=== PATIENT | male | born 1975 | race Caucasian/White ===

== ENCOUNTER 2017-04-24 09:03 | Emergency (ER) | payer SELFPAY ==
[2017-04-24 09:27] VITALS: BP 187/97; PULSE 113; RESP 20; TEMP 38.8; O2SAT 96; BMI 41.3
--- NOTE | 2017-04-24 09:52 | HMH.EDUTC ---
[facility] [place] Impression: Influenza-like illness Disposition: Home, Self-Care Condition on Discharge: Good Instructions: DI for Influenza -- Adult Additional Instructions: * Lots of rest * Increase fluids, water, gatorade, powerade, pedialyte if infant/toddler/child * Monitor Temp. Tylenol every 4 hours as needed no more then 5 times a day or 4000mg in 24 hours and/or ibuprofen every 6 hours as needed no more then 3200mg in 24 hours (as long as your primary care doctor has told you that it is ok to take both) for fever/aches/pain. ER if fever no less than 101 despite tylenol and Ibuprofen * OTC cold/flu/sinus medication is ok but pick one. Your best option with high blood pressure would be Coricidin HBP. Do not take multiple different ones as they have similar ingredients and you can overdose on cold medication. * You (or your child) are contagious until no fever, aches, chills x 24 hours without medication for symptoms. Referrals: Ruma Abbott MD [Primary Care Provider] - (Immediately for new or worsening symptoms, improvement followed by sudden worsening or no noticeable improvement starting over the next 4 days. 911/ER for difficulty breathing/shortness of breath) Forms: Work/School Release Time of Disposition: 10:00 Medical Decision Making Vital Signs: 04/24/17 09:27 Temperature 102 F H Temperature Source Temporal Artery Scan Pulse Rate [Right Brachial] 113 H Respiratory Rate 20 Blood Pressure [Right Arm] 187/97 Blood Pressure Mean [Right Arm] 127 Blood Pressure Source [Right Arm] Automatic Cuff Blood Pressure Position [Right Arm] Sitting 02 Sat by Pulse Oximetry 96 Oxygen Delivery Method Room Air - Lab Data Lab results reviewed: Yes: I reviewed the patient's lab results. Flu A neg Flu B neg - Joey Inquiry Pt receiving controlled substance: No [facility] [place] - General Stated complaint: flu like symptoms Time Seen by Provider: 04/24/17 09:52 Mode of Arrival: Ambulatory Source of Information: Patient Limitations: No Limitations Description of Symptoms (Recalled from Triage Doc. by RN): possible flu HEENT Symptoms (Recalled from RN notes): No Resp Symptoms (Recalled from RN notes): Yes (possibe flu) Skin Symptoms (Recalled from RN notes): No MS Symptoms (Recalled from RN notes): No Functional Status (Recalled from RN notes): n/a - History of Present Illness Provider Complaint: c/o I think I have the flu . Fatigue last night. Feels worse this morning. Fever 101 at home, aches, chills, headache, minimal nonprod cough. No known sick contacts. No treatment before arrival. 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 Allergies Allergy/AdvReac Type Severity Reaction Status Date / Time No Known Allergies Allergy Verified 04/24/17 09:30 - Worker's Comp Is this a Worker's Comp case?: No [facility] History I have reviewed the patient's past medical history: Yes Medical History: Reports:: Hypertension Denies:: Cancer, Diabetes Mellitus Type 1, Diabetes Mellitus Type 2, MRSA Other Surgeries: Yes: No Previous Surgery Amputation: No Fractures: No - *Social History Smoking Status: Never smoker Alcohol Intake: never - Psychiatric History Expresses thoughts of harming self/others: None Suicide Plan Description: No Plan ROS Obtained: Yes Systems reviewed as appropriate & no additional complaints - Constitutional Constitutional: Reports as per HPI, Reports fatigue, Denies poor appetite - Eyes Eyes: Denies eye discharge, Denies eye pain, Denies other (eye redness) - ENT Ears, Nose, Mouth, and Throat: Denies otalgia, Reports nasal congestion, Denies nasal discharge, Denies sore throat, Denies throat swelling - Cardiovascular Cardiovascular: Denies chest pain, Denies irregular heart rhythm - Respiratory Respiratory: No chest congestion, Yes non-productive cough, No dyspnea, No wheezing - Gastrointestinal Gastrointestingal: Denies: diarrhea, vomiting - Integumentary/Breasts Sk
--- NOTE | 2017-04-24 09:58 | ED_ITS ---
[facility] [place] Clinical Impression: Influenza-like illness Disposition: Home, Self-Care Condition on Discharge: Good Instructions: DI for Influenza -- Adult Additional Instructions: * Lots of rest * Increase fluids, water, gatorade, powerade, pedialyte if infant/toddler/child * Monitor Temp. Tylenol every 4 hours as needed no more then 5 times a day or 4000mg in 24 hours and/or ibuprofen every 6 hours as needed no more then 3200mg in 24 hours (as long as your primary care doctor has told you that it is ok to take both) for fever/aches/pain. ER if fever no less than 101 despite tylenol and Ibuprofen * OTC cold/flu/sinus medication is ok but pick one. Your best option with high blood pressure would be Coricidin HBP. Do not take multiple different ones as they have similar ingredients and you can overdose on cold medication. * You (or your child) are contagious until no fever, aches, chills x 24 hours without medication for symptoms. Referrals: Ruma Abbott MD [Primary Care Provider] - (Immediately for new or worsening symptoms, improvement followed by sudden worsening or no noticeable improvement starting over the next 4 days. 911/ER for difficulty breathing/ shortness of breath) Forms: Work/School Release Time of Disposition: 10:00 Medical Decision Making Vital Signs: 04/24/17 09:27 Temperature 102 F H Temperature Source Temporal Artery Scan Pulse Rate [Right Brachial] 113 H Respiratory Rate 20 Blood Pressure [Right Arm] 187/97 Blood Pressure Mean [Right Arm] 127 Blood Pressure Source [Right Arm] Automatic Cuff Blood Pressure Position [Right Arm] Sitting 02 Sat by Pulse Oximetry 96 Oxygen Delivery Method Room Air - Lab Data Lab results reviewed: Yes: I reviewed the patient's lab results. Flu A neg Flu B neg - Joey Inquiry Pt receiving controlled substance: No [facility] [place] HPI - General Stated complaint: flu like symptoms Time Seen by Provider: 04/24/17 09:52 Mode of Arrival: Ambulatory Source of Information: Patient Limitations: No Limitations Description of Symptoms (Recalled from Triage Doc. by RN): possible flu HEENT Symptoms (Recalled from RN notes): No Resp Symptoms (Recalled from RN notes): Yes (possibe flu) Skin Symptoms (Recalled from RN notes): No MS Symptoms (Recalled from RN notes): No Functional Status (Recalled from RN notes): n/a - History of Present Illness Provider Complaint: c/o I think I have the flu . Fatigue last night. Feels worse this morning. Fever 101 at home, aches, chills, headache, minimal nonprod cough. No known sick contacts. No treatment before arrival. 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 Allergies Allergy/AdvReac Type Severity Reaction Status Date / Time No Known Allergies Allergy Verified 04/24/17 09:30 - Worker's Comp Is this a Worker's Comp case?: No [facility] History I have reviewed the patient's past medical history: Yes Medical History: Reports:: Hypertension Denies:: Cancer, Diabetes Mellitus Type 1, Diabetes Mellitus Type 2, MRSA Other Surgeries: Yes: No Previous Surgery Amputation: No Fractures: No - *Social History Smoking Status: Never smoker Alcohol Intake: never - Psychiatric History Expresses thoughts of harming self/others: None Suicide Plan Description: No Plan ROS Obtained: Yes Systems reviewed as appropriate & no additional complaints - Constitutional Constitutional: Reports as per HPI, Reports fatig
[2017-04-24 10:01] VITALS: BP 187/97; PULSE 113; RESP 20; TEMP 38.8; O2SAT 96
[2017-04-24 10:08] LABS: UTC Influenza A Antigen Negative (Negative); UTC Influenza B Antigen Negative (Negative)
== END 2017-04-24 10:02 | disposition home or self-care (01) ==
PROVIDERS: Emergency Provider Nurse Practitioner Family; Family Provider Family Medicine; PCP Family Medicine
DX: J11.1 Influenza due to unidentified influenza virus with other respiratory manifestations (principal); I10 Essential (primary) hypertension
CPT/HCPCS: 87804; 99202

== ENCOUNTER → 2017-06-30 16:07 | Outpatient (REF) | payer OTHER, SELFPAY ==
[2017-06-30 18:31] LABS: Basophils % 0.2 % (0.1-2.0); Eosinophils # 0.1 K/mm3 (0.0-0.4); Eosinophils % 1.5 % (0.1-12.0); Hematocrit 43.2 % (42.0-52.0); Hemoglobin 14.5 g/dL (14.1-18.0); Lymphocytes # 2.2 K/mm3 (0.7-4.5); Lymphocytes % 24.5 K/mm3 (10-50); Mean Corpuscular HGB Conc 33.7 g/dL (31.8-35.4); Mean Corpuscular Hemoglobin 27.5 pg (27.0-31.2); Mean Corpuscular Volume 81.6 fl (80-94); Mean Platelet Volume 7.1 fl (7.4-10.4); Monocytes # 0.8 K/mm3 (0.1-1.0); Monocytes % 9.1 % (1.7-9.3); Neutrophils # 5.8 K/mm3 (1.8-7.8); Neutrophils % 64.7 % (37.0-80.0); Platelet Count 321 K/mm3 (142-424); Red Blood Count 5.29 M/mm3 (4.60-6.20); Red Cell Distribution Width 13.9 % (11.5-17.5); White Blood Count 8.9 K/mm3 (4.8-10.8)
[2017-06-30 19:04] LABS: Alanine Aminotransferase 35 U/L (12-78); Albumin Level 4.1 gm/dL (3.4-5.0); Albumin/Globulin Ratio 1.3 (1.1-1.8); Alkaline Phosphatase 88 U/L (46-116); Anion Gap 13.7 mEq/L (5-15); Aspartate Amino Transferase 20 U/L (15-37); Bilirubin,Total 0.6 mg/dL (0.2-1.0); Blood Urea Nitrogen 27 mg/dL (7-18); Calcium 9.9 mg/dL (8.5-10.1); Carbon Dioxide 28 mmol/L (21.0-32.0); Chloride 103 mmol/L (98-107); Chol/HDL Ratio 4.7 (1-3.5); Cholesterol 180 mg/dL (140-200); Creatinine,Serum 0.91 mg/dL (0.70-1.30); Estimated Glomerular Filt Rate 92 ml/min (>60); GFR (African American) 111 ML/MIN (>60); Globulin 3.2 gm/dl (1.3-3.2); Glucose 95 mg/dL (74-106); HDL Cholesterol 38 mg/dL (27-67); LDL Cholesterol 110 mg/dL (0-130); Potassium 4.7 mmoL/L (3.5-5.1); Sodium 140 mmol/L (136-145); T4 (Thyroxine) 8.9 ug/dl (4.7-13.3); Thyroid Stimulating Hormone 4.61 uIU/ml (0.358-3.740); Total Protein,Serum 7.3 gm/dL (6.4-8.2); Triglycerides 159 mg/dL (30-200); VLDL Cholesterol 32 mg/dL (0-40)
[2017-07-03 12:51] LABS: Vitamin D 25 Hydroxy 13.8 ng/mL (30.0-100.0)
== END ==
LOC: LAB 16:07
PROVIDERS: Visit Provider Physician Assistant
DX: I10 Essential (primary) hypertension (principal)
CPT/HCPCS: 80053; 80061; 82652; 84436; 84443; 85025

== ENCOUNTER → 2017-10-29 08:36 | Outpatient (CLI) | payer OTHER, SELFPAY ==
[2017-10-30 11:48] LABS: Basophils % 0.3 % (0.1-2.0); Eosinophils # 0.1 K/mm3 (0.0-0.4); Eosinophils % 1.6 % (0.1-12.0); Hematocrit 46.6 % (42.0-52.0); Hemoglobin 15.3 g/dL (14.1-18.0); Lymphocytes # 1.8 K/mm3 (0.7-4.5); Lymphocytes % 26.1 K/mm3 (10-50); Mean Corpuscular HGB Conc 32.9 g/dL (31.8-35.4); Mean Corpuscular Hemoglobin 27.6 pg (27.0-31.2); Mean Corpuscular Volume 83.9 fl (80-94); Mean Platelet Volume 8.9 fl (7.4-10.4); Monocytes # 0.5 K/mm3 (0.1-1.0); Monocytes % 7.2 % (1.7-9.3); Neutrophils # 4.5 K/mm3 (1.8-7.8); Neutrophils % 64.8 % (37.0-80.0); Platelet Count 265 K/mm3 (142-424); Red Blood Count 5.55 M/mm3 (4.60-6.20); Red Cell Distribution Width 14.1 % (11.5-17.5); White Blood Count 6.9 K/mm3 (4.8-10.8)
[2017-10-30 12:07] LABS: Alanine Aminotransferase 31 U/L (12-78); Albumin/Globulin Ratio 1.4 (1.1-1.8); Alkaline Phosphatase 79 U/L (46-116); Anion Gap 13.3 mEq/L (5-15); Aspartate Amino Transferase 15 U/L (15-37); Bilirubin,Total 0.6 mg/dL (0.2-1.0); Blood Urea Nitrogen 17 mg/dL (7-18); Carbon Dioxide 28 mmol/L (21.0-32.0); Chloride 102 mmol/L (98-107); Chol/HDL Ratio 4.4 (1-3.5); Cholesterol 175 mg/dL (140-200); Estimated Glomerular Filt Rate 74 ml/min (>60); GFR (African American) 89 ML/MIN (>60); Globulin 2.9 gm/dl (1.3-3.2); Glucose 132 mg/dL (74-106); HDL Cholesterol 40 mg/dL (27-67); LDL Cholesterol 105 mg/dL (0-130); Potassium 4.3 mmoL/L (3.5-5.1); Sodium 139 mmol/L (136-145); Thyroid Stimulating Hormone 2.12 uIU/ml (0.358-3.740); Total Protein,Serum 6.9 gm/dL (6.4-8.2); Triglycerides 152 mg/dL (30-200); VLDL Cholesterol 30 mg/dL (0-40)
[2017-11-02 12:54] LABS: Vitamin D 25 Hydroxy 37.5 ng/mL (30.0-100.0)
== END ==
PROVIDERS: Visit Provider Physician Assistant
DX: E03.9 Hypothyroidism, unspecified (principal); I10 Essential (primary) hypertension; Z68.36 Body mass index [BMI] 36.0-36.9, adult
CPT/HCPCS: 80053; 80061; 82652; 84436; 84443; 85025

== ENCOUNTER → 2018-06-22 07:55 | Outpatient (CLI) | payer OTHER, SELFPAY ==
[2018-06-22 09:36] LABS: Alanine Aminotransferase 46 U/L (12-78); Albumin Level 4.2 gm/dL (3.4-5.0); Albumin/Globulin Ratio 1.3 (1.1-1.8); Alkaline Phosphatase 68 U/L (46-116); Anion Gap 10.8 mEq/L (5-15); Aspartate Amino Transferase 23 U/L (15-37); Bilirubin,Total 0.8 mg/dL (0.2-1.0); Blood Urea Nitrogen 22 mg/dL (7-18); Calcium 9.6 mg/dL (8.5-10.1); Carbon Dioxide 31 mmol/L (21.0-32.0); Chloride 102 mmol/L (98-107); Cholesterol 196 mg/dL (140-200); Creatinine,Serum 0.98 mg/dL (0.70-1.30); Estimated Glomerular Filt Rate 84 ml/min (>60); GFR (African American) 101 ML/MIN (>60); Globulin 3.2 gm/dl (1.3-3.2); Glucose 95 mg/dL (74-106); HDL Cholesterol 39 mg/dL (27-67); LDL Cholesterol 143 mg/dL (0-130); Potassium 4.8 mmoL/L (3.5-5.1); Sodium 139 mmol/L (136-145); Thyroid Stimulating Hormone 2.22 uIU/ml (0.358-3.740); Total Protein,Serum 7.4 gm/dL (6.4-8.2); Triglycerides 72 mg/dL (30-200); VLDL Cholesterol 14 mg/dL (0-40)
[2018-06-23 12:47] LABS: Vitamin D 25 Hydroxy 32.5 ng/mL (30.0-100.0)
== END ==
PROVIDERS: Visit Provider Nurse Practitioner Family
DX: Z00.00 Encounter for general adult medical examination without abnormal findings (principal); I10 Essential (primary) hypertension; E03.9 Hypothyroidism, unspecified; E55.9 Vitamin D deficiency, unspecified
CPT/HCPCS: 36415; 80053; 80061; 82652; 84443

== ENCOUNTER 2019-12-12 15:07 | Emergency (ER) | payer OTHER, SELFPAY ==
[2019-12-12 15:20] VITALS: BP 139/55; PULSE 67; RESP 16; TEMP 36.7; O2SAT 98; BMI 39.9
[2019-12-12 15:42] VITALS: BP 139/55; PULSE 67; RESP 16; TEMP 36.7; O2SAT 98; BMI 39.9
--- NOTE | 2019-12-12 16:41 | HMH.EDUTC ---
[facility] [place]position Clinical Impression: Left ear pain Disposition: Home, Self-Care Condition on Discharge: Good Instructions: DI for Ear Pain-Adult Additional Instructions: Follow up with your primary care physician. Use the drops as directed. GO TO THE ER FOR ANY WORSENING SYMPTOMS OR CONCERNS Prescriptions: Neomycin/Polymyxin B Sulf/Hc [Zwqpxopc-Tzsjykiwt-DL Otic Susp 10mL] 3 drops EAR-LEFT TID 7 Days #1 bottle Transmission Status: Received by [facility] Referrals: Link Kaba MD [Primary Care Provider] - Time of Disposition: 16:50 Medical Decision Making - Medical Records Medical records reviewed: No: I reviewed the patient's medical records. - Joey Inquiry Pt receiving controlled substance: No Vital Signs: 12/12/19 15:20 12/12/19 15:42 12/12/19 16:55 Temperature 98.1 F 98.1 F 98.1 F Temperature Source Oral Oral Pulse Rate 67 Pulse Rate [Left Radial] 67 67 Respiratory Rate 16 16 16 Blood Pressure 139/55 L Blood Pressure [Left Arm] 139/55 L 139/55 L Blood Pressure Mean [Left Arm] 83 83 Blood Pressure Source [Left Arm] Automatic Cuff Automatic Cuff Blood Pressure Position [Left Arm] Sitting Sitting 02 Sat by Pulse Oximetry 98 98 Oxygen Delivery Method Room Air Room Air Medical Decision Narrative: no foreign body, insect or any other thing was noted upon close examination of his bilateral ears. [facility] [place] HPI - General Stated complaint: ant may have gotten in L ear Time Seen by Provider: 12/12/19 15:40 Mode of Arrival: Ambulatory Source of Information: Patient Limitations: No Limitations Description of Symptoms (Recalled from Triage Doc. by RN): PATIENT STATES HE WAS CUTTING WOOD AND HAD ANTS ON HIM AND BELIEVES ONE CRAWLED IN HIS EAR. C/O PRESSURE TO LEFT EAR HEENT Symptoms (Recalled from RN notes): Yes Resp Symptoms (Recalled from RN notes): No Skin Symptoms (Recalled from RN notes): No MS Symptoms (Recalled from RN notes): No Functional Status (Recalled from RN notes): WNL - History of Present Illness Provider Complaint: He states that he thinks that he has an ant in his left ear. It would have went in there while he was chopping wood earlier today. Since then he has had pain of the ear. - Related Data Previous Rx's Medication Instructions Recorded lisinopril 10 1 tab PO DAILY #30 tab 10/21/17 mg-hydrochlorothiazide 12.5 mg tablet ergocalciferol (vitamin D2) 1,250 50,000 unit PO QWEEK #14 cap 10/29/17 mcg (50,000 unit) capsule levothyroxine 25 mcg capsule 25 mcg PO DAILY #90 cap 10/29/17 metoprolol succinate 100 mg 100 mg PO DAILY #90 tab 10/29/17 tablet,extended release 24 hr phentermine 37.5 mg capsule 37.5 mg PO DAILY #30 cap 10/29/17 cholecalciferol (vitamin D3) 25 1,000 unit PO DAILY #90 tab 04/23/18 mcg (1,000 unit) tablet Ondansetron [Zofran 4mg ODT] 4 mg PO Q8HP PRN #20 tab.rapdis 03/10/19 Neomycin/Polymyxin B Sulf/Hc 3 drops EAR-LEFT TID 7 Days #1 12/12/19 [Kgtvqpsa-Gbfwxktou-VU Otic Susp bottle 10mL] Allergies Allergy/AdvReac Type Severity Reaction Status Date / Time No Known Allergies Allergy Verified 10/29/17 08:28 - Worker's Comp Is this a Worker's Comp case?: No [facility] History - Hepatitis A Screen Drug use history?: No High risk sexual behaviors?: No History of sexually transmitted infection?: No Currently employed?: No Childcare worker?: No Do you have indoor plumbing?: Yes Do you have electricity?: Yes Attestation statement:: This patient has been screened for Hepatitis A risk factors. I have reviewed the patient's past medical history: Yes Medical History: Reports:: Hypertension Denies:: Cancer, Diabetes Mellitus Type 1, Diabetes Mellitus Type 2, MRSA Other Surgeries: Yes: No Previous Surgery Amputation: No Fractures: No - Social History Smoking Status: Never smoker Alcohol Intake: never Occupational Status: other Housing: house Household Members: spouse, children Family Hx:: No signifi
[2019-12-12 16:55] VITALS: BP 139/55; PULSE 67; RESP 16; TEMP 36.7; O2SAT 98
== END 2019-12-12 16:54 | disposition home or self-care (01) ==
PROVIDERS: Emergency Provider Nurse Practitioner Family; PCP Internal Medicine Adolescent Medicine
DX: H92.02 Otalgia, left ear (principal); I10 Essential (primary) hypertension
CPT/HCPCS: 99201

== ENCOUNTER → 2020-05-22 09:49 | Outpatient (CLI) | payer OTHER, SELFPAY ==
[2020-05-22 10:37] LABS: Chloride 102 mmol/L (98-107); Potassium 4.7 mmoL/L (3.5-5.1); Sodium 140 mmol/L (136-145)
[2020-05-22 10:39] LABS: Alanine Aminotransferase 48 U/L (12-78); Aspartate Amino Transferase 37 U/L (17-59); Blood Urea Nitrogen 24 mg/dl (9-20); Estimated Glomerular Filt Rate 92 ml/min (>60); GFR (African American) 111 ML/MIN (>60)
[2020-05-22 10:40] LABS: Albumin Level 4.6 g/dl (3.5-5.0); Albumin/Globulin Ratio 1.6 (1.1-1.8); Alkaline Phosphatase 100 U/L (38-126); Anion Gap 8.7 mEq/L (5-15); Bilirubin,Total 0.7 mg/dl (0.2-1.3); Calcium 10.6 mg/dl (8.4-10.2); Carbon Dioxide 34 mmol/L (22.0-30.0); Cholesterol 131 mg/dl (140-200); Globulin 2.8 g/dL (1.3-3.2); Glucose 126 mg/dl (74-100); Total Protein,Serum 7.4 g/dl (6.3-8.2); Triglycerides 109 mg/dl (30-150); VLDL Cholesterol 22 mg/dL (0-40)
[2020-05-22 10:41] LABS: HDL Cholesterol 43 mg/dl (40-60)
[2020-05-22 10:52] LABS: Direct LDL Cholesterol 71.23 mg/dL (100-129)
[2020-05-22 11:12] LABS: Thyroid Stimulating Hormone 2.15 uIU/mL (0.465-4.68)
[2020-05-23 08:36] LABS: Hemoglobin A1C 5.8 % (4.0-6.0)
== END ==
PROVIDERS: Visit Provider Internal Medicine Adolescent Medicine
DX: I10 Essential (primary) hypertension (principal)
CPT/HCPCS: 36415; 80053; 80061; 83036; 84443

== ENCOUNTER → 2021-05-29 08:16 | Outpatient (CLI) | payer BC, SELFPAY | PROVIDERS: Visit Provider Surgery | DX: Z01.812 Encounter for preprocedural laboratory examination (principal); Z11.52 Encounter for screening for COVID-19; Z12.11 Encounter for screening for malignant neoplasm of colon | CPT/HCPCS: C9803; U0003; U0005 ==

== ENCOUNTER 2021-05-31 09:40 | Day surgery (SDC) | payer BC, SELFPAY ==
[2021-05-29 13:02] VITALS: BMI 48.5
[2021-05-31 10:27] VITALS: BP 156/77; PULSE 71; RESP 18; TEMP 36.7; O2SAT 96
--- NOTE | 2021-05-31 12:15 | HMH.ANESCL ---
[facility] Anesthesia Checklist - Structural Data Planned Operative Procedure/s: colonoscopy Consent for Planned Operative Procedure(s) Verified: Yes - Airway Assessment C-Spine Mobility Assessed: Yes TMJ Mobility Assessed: Yes Dentition: Poor Dentition - Neurological Assessment Level of Consciousness: Awake, Alert, Appropriate - Anesthesia Plan Anesthesia Risk discussed: Yes Anesthesia Plan: Verified ASA Class: III Anesthesia Type: MAC [facility] History I have reviewed the patient's past medical history: Yes Medical History: Reports:: Hypertension Denies:: Cancer, Diabetes Mellitus Type 1, Diabetes Mellitus Type 2, MRSA, Seizures *Have you ever received a pneumonia vaccine?: No *Have you received a flu vaccine this season?: No Anesthesia experience/problems:: none Other Surgeries: Yes: No Previous Surgery Amputation: No Fractures: No - *Social History Last grade of school completed: High school graduate Smoking Status: Never smoker Alcohol Intake: never Substance Use Type: denies use *Occupational Status:: employed Housing: house Household Members: spouse *Travel in the last 8 weeks: Inside the [facility] Family Hx:: No significant family history
[2021-05-31 12:30] VITALS: O2SAT 96
[2021-05-31 13:18] VITALS: BP 101/55; PULSE 78; RESP 16; TEMP 36.3; O2SAT 92
--- NOTE | 2021-05-31 13:21 | HMH.SCOPE ---
- Procedure: Date: 05/31/21 Patient Date of :: 1975 Procedure Performed:: Total colonoscopy to terminal ileum with polypectomy Indications:: Patient is a 45-year-old male referred by Dr. Bajwa for initial screening colonoscopy. He is asymptomatic. No known family history of colon cancer. Performing Provider:: Balbir Greene MD Referring Provider:: John Bajwa MD Sedation:: MAC sedation Procedure:: Patient was taken to endoscopy procedure room. He was positioned in lateral decubitus position. Adequate intravenous sedation was achieved with anesthesia titration of propofol. Variable stiffness Olympus colonoscope was inserted via the anus. Is advanced to the cecum. Ileocecal valve and appendiceal orifice were clearly identified. Colonoscope was advanced a short distance into the terminal ileum which appeared grossly normal. Colonoscope was slowly withdrawn through the colon with careful surveillance. In the transverse colon there was a tiny diminutive polyp removed with cold snare. However, this was unable to be retrieved. The colonoscope was repeatedly withdrawn and advanced all the way back to the cecum in an attempt to identify this tiny polyp which was unsuccessful. Colonoscope was then slowly withdrawn through the remainder of the colon. In the descending colon there was a tiny diminutive polyp removed with cold biopsy forceps. In the rectum retroflexion was performed which revealed no evidence of any pathologic internal hemorrhoids. Colonoscope was withdrawn. Findings:: Diminutive polyp x2 Recommendations:: Likely repeat colonoscopy 5 years Complications:: None immediately apparent Estimated blood obtained (mL): 3
[2021-05-31 13:28] VITALS: BP 132/89; PULSE 80; RESP 16; O2SAT 97
[2021-05-31 13:38] VITALS: BP 106/76; PULSE 64; RESP 16; O2SAT 98
[2021-05-31 13:48] VITALS: BP 135/75; PULSE 66; RESP 16; O2SAT 98
== END 2021-05-31 13:48 | disposition home or self-care (01) ==
PROVIDERS: PCP Internal Medicine Adolescent Medicine; Visit Provider Surgery
PROC: 0DJD8ZZ Inspection of Lower Intestinal Tract, Via Natural or Artificial Opening Endoscopic (ICD-10-PCS; CPT 45385; principal; 2021-05-31 11:30)
DX: Z12.11 Encounter for screening for malignant neoplasm of colon (principal); K63.5 Polyp of colon; I10 Essential (primary) hypertension; E03.9 Hypothyroidism, unspecified; Z79.899 Other long term (current) drug therapy
CPT/HCPCS: 45385; 45380; J2704

== ENCOUNTER → 2022-11-21 08:14 | Outpatient (CLI) | payer BC, SELFPAY ==
[2022-11-21 10:05] LABS: Alanine Aminotransferase 32 U/L (12-78); Albumin Level 4.3 g/dl (3.5-5.0); Albumin/Globulin Ratio 1.7 (1.1-1.8); Alkaline Phosphatase 104 U/L (38-126); Anion Gap 13.4 mEq/L (5-15); Aspartate Amino Transferase 29 U/L (17-59); Bilirubin,Total 0.6 mg/dl (0.2-1.3); Blood Urea Nitrogen 26 mg/dl (9-20); Calcium 9.3 mg/dl (8.4-10.2); Carbon Dioxide 29 mmol/L (22.0-30.0); Chloride 102 mmol/L (98-107); Chol/HDL Ratio 3.3 (1-3.5); Cholesterol 120 mg/dl (140-200); Estimated Glomerular Filt Rate 91 ml/min (>60); GFR (African American) 110 ML/MIN (>60); Globulin 2.6 g/dL (1.3-3.2); Glucose 93 mg/dl (74-100); HDL Cholesterol 36 mg/dl (40-60); Potassium 4.4 mmoL/L (3.5-5.1); Sodium 140 mmol/L (136-145); Total Protein,Serum 6.9 g/dl (6.3-8.2); Triglycerides 112 mg/dl (30-150); VLDL Cholesterol 22 mg/dL (0-40)
[2022-11-21 10:16] LABS: Direct LDL Cholesterol 64.04 mg/dL (100-129)
[2022-11-21 10:22] LABS: 25-OH Vitamin D, Total 107 ng/mL (30-100)
[2022-11-21 10:34] LABS: Thyroid Stimulating Hormone 2.53 uIU/mL (0.465-4.68)
== END ==
PROVIDERS: PCP Nurse Practitioner Family; Visit Provider Nurse Practitioner Family
DX: E78.5 Hyperlipidemia, unspecified (principal); I10 Essential (primary) hypertension; E03.9 Hypothyroidism, unspecified; E55.9 Vitamin D deficiency, unspecified; Z68.36 Body mass index [BMI] 36.0-36.9, adult
CPT/HCPCS: 36415; 80053; 80061; 82306; 84443

== ENCOUNTER 2023-05-08 10:40 | Outpatient (CLI) | payer BC, SELFPAY ==
--- NOTE | 2023-05-08 | CA_ITS ---
APPROVED REPORT EXAM: Comprehensive 2D, Doppler, and color-flow Echocardiogram Cripple Chaser: Maria Dolores Fernández CRT Ht: 5 ft 9 in Wt: 280lbs BSA: 2.38 BP: 140/80 mmHg Indications: Hyperlipidemia, Hypertension/HDD, AI 2D Dimensions Aortic Root 4.15 cm LVEF (White's) 53.80 % Left Atrium 3.53 cm LV Volume 168.50 mL LVOT 2.20 cm (M/F) 1.5-2.5 LA Volume 43.80 mL LA Volume Index 18.40 mL/m2 (M/F) 16-34 EF AP4 51.50 % EF AP2 52.6 % EF BP 53.8 % GL Strain -16.6 % M-Mode Dimensions RVDd 2.81 cm (0.9-2.6) LVDd 6.22 cm (3.5-5.7) Ao Diam 4.41 cm (2.0-3.7) LVDs 3.99 cm (3.5-5.7) IVSd 1.56 cm (0.6-1.1) PWd 1.02 cm (0.6-1.1) EF (Teich) 64.40% FS 35.90% EDV (Teich) 195.40 mL ESV (Teich) 69.60 mL LV Diastology E Decel Time 164 (160-240 msec) E/A Ratio 1.26 MED E' 6.8 (>= 7 cm/sec) MED A' 9.90 cm/s E'/MED E' Ratio 12.00 (<= 14) LAT E' 9.5 (>= 10 cm/sec) LAT A' 12.10 cm/s E/LAT E' Ratio 8.59 (<= 14) Aortic Valve LVOT Max 73.0 (70-110 cm/s) EASTON Index 0.70 cm2/m2 LVOT VTI 15.52 cm AoV Peak José. 162.0 (50-130 cm/s) AI PHT 398.00 ms AO Peak GR. 9.80 mmHg AO Mean GR. 5.90 (<5 mmHg) AO VTI 35.5 (18-25 cm) EASTON (VTI) 1.66 (2.5-4.5 cm2) Mitral Valve MV E Max José. 82.0 (40-130 cm/s) MV A Velocity 65.0 (40-130 cm/s) E/A Ratio 1.26 MV Decel. Time 164 (160-240 ms) Tricuspid Valve TR P. Velocity 234.00 cm/s RAP Estimate 10.00 mmHg RVSP 32.00 mmHg Left Ventricle The left ventricle is normal size (LVEDd=6.1 cm, LVESd=3.8 cm). The left ventricular systolic function is normal. The left ventricular ejection fraction is within the normal range. There is normal left ventricular wall thickness. There is normal LV segmental wall motion. The left ventricular diastolic function is normal. LVEF is 60%. Right Ventricle The right ventricle is normal size. The right ventricular systolic function is normal. Atria The left atrium size is normal. The right atrium size is normal. There is no Doppler evidence of interatrial shunt. Aortic Valve The aortic valve is possibly bicuspid. The aortic valve is thickened with presence of focal nodular calcification. There is no aortic valvular stenosis. Moderate aortic regurgitation is present. There are at least 2 eccentric AR jets present. Mitral Valve The mitral valve is normal in structure. No evidence of mitral valve stenosis. Trace mitral regurgitation. Tricuspid Valve Tricuspid valve leaflets are thin and pliable. Trace tricuspid regurgitation. There is insufficient TR jet to estimate RVSP. Pulmonic Valve The pulmonary valve is normal in structure. Trace pulmonic regurgitation. Great Vessels The aortic root is mildly dilated, measuring 4.4 cm in diameter. The ascending aorta is mildly dilated, measuring 3.9 cm in diameter. The IVC is not well-visualized. Pericardium There is no pericardial effusion. Other Information Study Quality: Fair Conclusion Normal biventricular size and systolic function. Possibly bicuspid aortic valve. The aortic valve is thickened with focal nodular calcification. Moderate AI with multiple eccentric jets. Dilated aortic root (4.4 cm) and ascending aorta (3.9 cm). Further evaluation of the aortic valve to determine AV structure and severity of AI, as well as LV size in the setting of AI, is recommended with cardiac MRI (aortic valve/aortic regurgitation protocol). Electronically signed by : Rain Sosa MD 05/12/2023 23:17:37
== END 2023-05-08 23:59 ==
PROVIDERS: PCP Internal Medicine Adolescent Medicine; Visit Provider Nurse Practitioner Family
DX: Q23.1 Congenital insufficiency of aortic valve (principal)
CPT/HCPCS: 93306